=== PATIENT | male | born 1995 | race Two or more races ===

== ENCOUNTER 2018-02-19 00:22 | Emergency (ER) | payer OTHER ==
[~2018-02-19] VITALS: Ht 188 cm; Wt 172.4 kg
[2018-02-19] MEDS ORDERED: ACETAMINOPHEN ES 500 MG TABLET ONE (01:28)
[2018-02-19] MEDS ORDERED: ACETAMINOPHEN 325 MG TABLET PO ONE (01:30)
--- NOTE | 2018-02-19 01:30 | NUR ---
Patient discharged to home in stable conditon. Written and verbal after care instructions given. Patient verbalizes understanding of instructions.
== END 2018-02-19 01:31 | disposition home or self-care (01) ==
LOC: ER 00:24
DX: M54.6 Pain in thoracic spine (principal)
CPT/HCPCS: 72072; A4663; A9150